=== PATIENT | male | born 1950 | race Two or more races ===

== ENCOUNTER 2024-02-11 22:55 | Inpatient (IN) | payer OTHER ==
[~2024-02-11] VITALS: Ht 177.8 cm; Wt 86.0 kg
--- NOTE | 2024-02-12 00:02 | ED.PDOC ---
General HPI Comments 73-year-old male who came to ER for urinary issues. Patient does have history of benign prostatic hypertrophy. He has a Shelley catheter inserted. For the past few hours he has been having gross hematuria, and leaking Shelley Shelley catheter, with inability to fully void at times. Noted lower abdominal/suprapubic pressure. Denies any nausea or vomiting. Chief Complaint: Urinary Time Seen by MD: 00:02 Reviewed notes: Nurses Notes Information Source: Patient Mode of Arrival: EMS Severity: Moderate Inability to void: Complete Timing: Hours Duration: Since onset Has not urinated for: Hours Prehospital treatment: None Onset: Spontaneous Symptoms: Hematuria, Inability to void History of: UTI, BPH Location: Suprapubic associated signs and symptoms: Hematuria, Inability to Void Past Medical History PAST MEDICAL HISTORY: HTN Past Medical History (Other): Benign prostatic hypertrophy Surgical History: Denies all surgeries Family History Family History: Reviewed,noncontributory to illness Social History Smoker: Non-Smoker Alcohol: Denies ETOH Use Drugs: Denies Drug Use Lives In: Home Constitutional: denies: chills, diaphoresis, fatigue, fever, malaise, sweats, weakness, others EENTM: denies: blurred vision, double vision, ear bleeding, ear discharge, ear drainage, ear pain, ear ringing, eye pain, eye redness, hearing loss, mouth pain, mouth swelling, nasal discharge, nose bleeding, nose congestion, nose pain, photophobia, tearing, throat pain, throat swelling, voice changes, others Respiratory: denies: cough, hemoptysis, orthopnea, SOB at rest, shortness of breath, SOB with excertion, stridor, wheezing, others Cardiovascular: denies: chest pain, dizzy spells, diaphoresis, Dyspnea on exertion, edema, irregular heart beat, left arm pain, lightheadedness, palpitations, PND, syncope, others Gastrointestinal: reports: abdominal pain; denies: abdomen distended, blood streaked bowels, constipated, diarrhea, dysphagia, difficulty swallowing, hematemesis, melena, nausea, poor appetite, poor fluid intake, rectal bleeding, rectal pain, vomiting, others Genitourinary: reports: hematuria, others (Inability to void); denies: burning, dysuria, flank pain, frequency, incontinence, penile discharge, penile sore, pain, testicle pain, testicle swelling, urgency Neurological: denies: dizziness, fainting, headache, left sided numbness, left sided weakness, numbness, paresthesia, pre-existing deficit, right sided numbness, right sided weakness, seizure, speech problems, tingling, tremors, weakness, others Musculoskeletal: denies: back pain, gout, joint pain, joint swelling, muscle pain, muscle stiffness, neck pain, others Integumetry: denies: bruises, change in color, change in hair/nails, dryness, laceration, lesions, lumps, rash, wounds, others Allergic/Immunocompromised: denies: Difficulty Healing, Frequent Infections, Hives, Itching, others Hematologic/Lymphatic: denies: anemia, blood clots, easy bleeding, easy bruising, swollen glands, others Endocrine: denies: excessive hunger, excessive sweating, excessive thirst, excessive urination, flushing, intolerance to cold, intolerance to heat, unexplained weight gain, unexplained weight loss, others Psychiatric: denies: anxiety, bipolar disorder, depression, hopeless, panic disorder, schizophrenia, sleepless, suicidal, others Physical Exam General Appearance: No Apparent Distress, Normal HEENT: Normal ENT Inspection, Pharynx Normal, TMs Normal Neck: Full Range of Motion, Non-Tender, Normal, Normal Inspection Respiratory: Chest Non-Tender, Lungs Clear, No Accessory Muscle Use, No Respiratory Distress, Normal Breath Sounds Cardiovascular: No Edema, No JVD, No Murmur, No Gallop, Normal Peripheral Pulses, Regular Rate/Rhythm Breast Exam: Deferred Gastrointestinal: No Organomegaly, Non Tender, No Pulsatile Mass, Normal Bowel Sounds, Soft Genitalia: Deferred Pelvic: Deferred Rectal: Deferred Extremities: No calf tenderness, Normal capillary refill, Normal inspection, Normal range of motion, Non-tender, No pedal edema Musculoskeletal : Apperance: Normal Neurologic: Alert, orthophotography technician II-XII nml as Tested, No Motor Deficits, Normal Affect, Normal Mood, No Sensory Deficits Cerebellar Function: Normal Reflexes: Normal Skin: Dry, Normal Color, Warm Lymphatic: No Adenopathy Was a procedure done? Was a procedure done?: No Differential Diagnosis Kidney stone (Female): N/A Kidney stone (Male): Renal failure, Strain, Urinary obstruction, Urolithiasis, Renal infarction, Urinary tract infection Penile/Scrotal: Urolithiasis, Urinary Retention Urinary Problem (Male): Renal Failure, Urethritis, Urinary Retention, Urolithiasis, UTI X-Ray, Labs, Meds, VS Vital Signs Date Time Temp Pulse Resp B/P (MAP) Pulse Ox O2 Delivery O2 Flow Rate FiO2 02/11/24 22:55 97.8 91 16 167/105 (125) 98 Time of 1ST Reevaluation: 23:59 Reevaluation 1ST: Unchanged Patient Education/Counseling: Diagnosis, Treatment Family Education/Counseling: No Family Present Departure 1 Departure Time of Disposition: 01:21 (Patient has acute urinary retention with hematuria and clots. Patient needs continuous bladder irrigation. We will start here getting patient with a bladder admit for urology consultation further workup.) Impression: Primary Impression: Acute urinary retention Additional Impressions: Hematuria Qualified Codes: R31.0 - Gross hematuria Bladder irritation Disposition: ADMITTED INPATIENT Admit to: Med Surg Condition: Serious Critical Care Note Critical Care Time?: No Stability Stability form required: No Heart Score Heart Score: Heart Score Response (Comments) Value History N/A 0 EKG N/A 0 Age N/A 0 Risk Factors N/A 0 Troponin N/A 0 Total 0 I personally scribed for KRISSY HERRERA MD ([email or web address]) on 02/12/24 at 00:02. Electronically submitted by John Berger ([facility]). KRISSY HERRERA MD Feb 12, 2024 00:02
[2024-02-12 01:34] LABS: Basophils # (auto) 0 10 ^3/uL (0-0.2); Basophils % (auto) 0.3 % (0.0-2.0); Eosinophils # (auto) 0 10 ^3/uL (0-0.8); Eosinophils % (auto) 0.3 % (0.0-7.0); Hematocrit 41.5 % (41.0-53.0); Hemoglobin 14.5 g/dL (13.5-17.5); Lymphocytes # (auto) 1.1 10 ^3/uL (0.4-5.4); Lymphocytes % (auto) 11.8 % (10.0-50.0); Mean Corpuscular Hemoglobin 31.1 pg (28.0-32.0); Mean Corpuscular Hgb Conc. 34.9 g/dL (32.0-36.0); Mean Corpuscular Volume 89.1 fL (80.0-100.0); Monocytes # (auto) 0.6 10 ^3/uL (0-1.3); Monocytes % (auto) 6.8 % (0.0-12.0); Neutrophils # (auto) 7.3 10 ^3/uL (1.6-8.6); Neutrophils % (auto) 80.8 % (37.0-80.0); Platelet Count (auto) 208 10^3/uL (140-450); Red Blood Cells 4.66 10^6/uL (4.5-5.90); Red Cell Distribution Width 14.2 % (11.8-14.3)
[2024-02-12 01:43] LABS: Chloride 104 mmol/L (98-107); Sodium 142 mmol/L (136-145)
[2024-02-12 01:44] LABS: Anion Gap 5 (5-15); Calcium 9.9 mg/dL (8.7-10.4)
[2024-02-12 01:47] LABS: Carbon Dioxide 33 mmol/L (20-31)
[2024-02-12 01:49] LABS: BUN/Creatinine Ratio 10.2 (10.0-20.0); Blood Urea Nitrogen 11 mg/dL (9-23)
[2024-02-12 02:13] LABS: Glucose 118 mg/dL (74-106)
[2024-02-12 02:24] LABS: INR 1.03 (0.9-1.15); Prothrombin Time 10.9 sec (9.3-11.8)
[2024-02-12] MEDS ORDERED: ACETAMINOPHEN 325 MG TAB PO PRN (02:45)
[2024-02-12] MEDS ORDERED: NITROGLYCERIN 0.4 MG SL TAB SL PRN (02:45)
[2024-02-12] MEDS ORDERED: MORPHINE SULFATE INJ 2 MG/ml SYRG IV PRN ×2 (02:45)
[2024-02-12] MEDS ORDERED: ONDANSETRON HCL 4 MG/2 ML VIAL IV PRN (02:45)
[2024-02-12 03:45] VITALS: PULSE 67; RESP 10; O2SAT 96
--- NOTE | 2024-02-12 04:20 | DVH ---
CHEST RADIOGRAPH Indication: baseline chest imaging Technique: Single frontal view of the chest was obtained Comparison: None IMPRESSION: The cardiomediastinal silhouette appears unremarkable. No sizable effusion, focal airspace opacity, o r pneumothorax.
--- NOTE | 2024-02-12 04:22 | DVHHPRES ---
History of Present Illness Resident Creating Document: SOCO BROCK RESIDENT Reason for Visit: URINARY BLEEDING History of Present Illness 73-year-old male patient with past medical history of benign prostatic hyperplasia with prior transurethral resection of the prostate, hyperlipidemia, hypertension managed with losartan and nifedipine, hepatic steatosis and intermittent constipation. He presents to the emergency department with a gross hematuria which he reports has been recurrent issue for the past 10 years. The bleeding occurs without apparent triggers such as physical activity or anticoagulation therapy. He denies any family history of coagulation disorders or similar conditions. The current episode of hematuria began on Wednesday (5 days ago), accompanied by lower abdominal bloating and eventually urinary retention close by clot formation obstructing the urethra (per patient). He reports that in previous episodes, drinking large amount of water help flush clots and restarted urinary flow. However in this episode the clot cause severe suprapubic pain and urinary retention, which necessitated placement of a Shelley catheter in the emergency department. Following catheter placement his pain resolved. The patient has a history of taking aspirin intermittently over the past decade for perceived benefit in reducing colon cancer and cardiovascular risk initially 325 mg, then reduced to 100 mg. He denies any abdominal pain, nausea, vomiting, dysuria, fever or recent weight loss. He also denies smoking alcohol use or drug use. The patient has no family history of bleeding disorder or malignancy. 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 Past Medical History benign prostatic hyperplasia with prior transurethral resection of the prostate, hyperlipidemia, hypertension Past Surgical History: TURP Family History: DM, Hypertension Smoke: No ALCOHOL: none Drugs: None Lives: with Family Domestic Violence: Neg Review of Systems Review of Systems Constitutional: Reports feeling well overall except for urinary bleeding and associated symptoms. Eyes: No: Pain, Vision change, Conjunctivae inflammation, Eyelid inflammation, Other, Redness ENT: No: Ear pain, Ear discharge, Nose pain, Nose discharge, Nose congestion, Mouth pain, Mouth swelling, Throat pain, Throat swelling, Other Respiratory: No Wheezing, Hemoptysis, Pleuritic Pain, Sputum, Wheezing, Other Cardiovascular: No: Chest Pain, Palpitations, Orthopnea, Paroxysmal Noc. Dyspnea, Edema, Lt Headedness, Other Gastrointestinal: No: Nausea, Vomiting, Abdominal Pain, Diarrhea, Constipation, Melena, Hematochezia, Other Genitourinary: Reports gross hematuria since Wednesday with possible clot retention since yesterday. Denies dysuria or foul-smelling urine. Has a history of intermittent hematuria for 10 years, usually relieved by increased water intake, currently has a Shelley catheter with no pain following placement. Denies incontinence Musculoskeletal: No: other, neck pain, shoulder pain, arm pain, back pain, hand pain, leg pain, foot pain Neurological:; No: Weakness, Numbness, Incoordination, Change in speech, Confusion, Seizures Allergies: Coded Allergies: No Known Drug Allergy (Verified Allergy, Unknown, 02/12/24) Medications Current Medications Medications Dose Ordered Sig/Eduin Route Start Time Stop Time Status Last Admin Dose Admin Ondansetron HCl 4 mg Q4HP PRN IV 02/12/24 02:45 Acetaminophen 650 mg Q6HP PRN PO 02/12/24 02:45 Morphine Sulfate 2 mg Q4HPRN PRN IV 02/12/24 02:45 Nitroglycerin 0.4 mg Q5MINP PRN SL 02/12/24 02:45 Morphine Sulfate 2 mg Q30M PRN IV 02/12/24 02:45 Exam Vital Signs Vital Signs Date Time Temp Pulse Resp B/P (MAP) Pulse Ox O2 Delivery O2 Flow Rate FiO2 02/12/24 04:05 98.6 67 10 176/105 (128) 96 98.6 02/12/24 03:45 Room Air* 0 21 Exam Examination General Appearance: Alert, Oriented X3, Cooperative, No acute distress HEENT: EOMI Respiratory: Clear to auscultation, Normal air movement Cardiovascular: Regular rate, Normal S1, Normal S2 Abdominal: Soft, nontender nondistended. Mild bloating noted in the hypogastric region, no rebound tenderness or guarding. Bowel sounds present and normal no palpable masses Genitourinary: Shelley catheter in place, draining bright red urine. No suprapubic tenderness no external lesions or discharge noted Extremities: No cyanosis, No edema, Normal pulses, No tenderness/swelling Skin: Multiple petechia in the torso Neuro: Normal gait, Normal speech, Strength at 5/5 X4 ext, Normal tone, Sensation intact, Cranial nerves 3-12 NL, Reflexes 2+ Psych/Mental Status: Mental status NL, Mood NL Labs/Xrays Labs Test 02/12/24 01:18 Range/Units White Blood Count 9.0 4.4-10.8 10^3/uL Red Blood Count 4.66 4.5-5.90 10^6/uL Hemoglobin 14.5 13.5-17.5 g/dL Hematocrit 41.5 41.0-53.0 % Mean Corpuscular Volume 89.1 80.0-100.0 fL Mean Corpuscular Hemoglobin 31.1 28.0-32.0 pg Mean Corpuscular Hemoglobin Concent 34.9 32.0-36.0 g/dL Red Cell Distribution Width 14.2 11.8-14.3 % Platelet Count 208 140-450 10^3/uL Mean Platelet Volume 9.6 6.9-10.8 fL Neutrophils (%) (Auto) 80.8 H 37.0-80.0 % Lymphocytes (%) (Auto) 11.8 10.0-50.0 % Monocytes (%) (Auto) 6.8 0.0-12.0 % Eosinophils (%) (Auto) 0.3 0.0-7.0 % Basophils (%) (Auto) 0.3 0.0-2.0 % Neutrophils # (Auto) 7.3 1.6-8.6 10 ^3/uL Lymphocytes # (Auto) 1.1 0.4-5.4 10 ^3/uL Monocytes # (Auto) 0.6 0-1.3 10 ^3/uL Eosinophils # (Auto) 0 0-0.8 10 ^3/uL Basophils # (Auto) 0 0-0.2 10 ^3/uL Nucleated Red Blood Cells 0.0 % Prothrombin Time 10.9 9.3-11.8 sec Prothrombin Time INR 1.03 0.9-1.15 Sodium Level 142 136-145 mmol/L Potassium Level 4.0 3.5-5.1 mmol/L Chloride Level 104 98-107 mmol/L Carbon Dioxide Level 33 H 20-31 mmol/L Anion Gap 5 5-15 Blood Urea Nitrogen 11 9-23 mg/dL Creatinine 1.08 0.700-1.30 mg/dL Glomerular Filtration Rate Calc 73 >90 mL/min BUN/Creatinine Ratio 10.2 10.0-20.0 Serum Glucose 118 H 74-106 mg/dL Calcium Level 9.9 8.7-10.4 mg/dL Assessment/Plan Assessment/Plan #Recurrent gross hematuria acute urinary retention likely due to clot formation ? Rule out benign prostatic hyperplasia ? Bladder pathology ? Urolithiasis ? Medication induced(aspirin) -history of TURP increases risk of bleeding from prostatic tissue. -CT scan of the abdomen -bladder scan -urinalysis -Shelley catheter -bladder irrigation -monitor I&O -urine culture -urology consult -coagulation panel -PSA -tamsulosin -discontinue aspirin temporarily ?questionable emphysematous cystitis -empiric antibiotics -meropenem iv -vanco iv -urine culture -blood culture #Uncontrolled hypertension Nifedipine XL 60 mg #Hyperlipidemia -ezetimibe #Hepatic steatosis -liver ultrasound -monitor LFTs Case discussed with Dr. Rodrigues Goals of care discussed with the patient for 30 minutes Code status, full code Plan discussed with: Patient My Orders Orders - SOCO BROCK RESIDENT Procedure Category Date Status Time Admit ADMIT 02/12/24 Transmitted 02:31 Allergies JACKIE 02/12/24 In Process 02:31 Code Status CODE 02/12/24 Transmitted 02:31 Renal DIET 02/12/24 Transmitted Standard(2gna,3gk,Lopho) Breakfast Ondansetron Hcl PHA 02/12/24 In Process (Zofran) 02:45 Complete Blood Count LAB 02/13/24 Verified 04:00 Comprehensive LAB 02/13/24 Verified Metabolic Panel 04:00 Acetaminophen Tablet PHA 02/12/24 In Process (Tylenol Tablet) 02:45 Morphine Sulfate PHA 02/12/24 In Process Injection 02:45 Nitroglycerin PHA 02/12/24 In Process Sublingual (Ntrostat 02:45 Morphine Sulfate PHA 02/12/24 In Process Injection 02:45 Oxygen By Nasal RT 02/12/24 Transmitted Cannula 02:31 Stat Ekg For Chest JACKIE 02/12/24 In Process Pain 02:31 Notify Md Of Changes JACKIE 02/12/24 In Process From Base 02:31 Consultant Technology For JACKIE 02/12/24 In Process 24 Hours 02:31 Emergency Dysrhythmia JACKIE 02/12/24 In Process Protocol 02:31 Rhythm Strips Once JACKIE 02/12/24 In Process Every Shift 02:31 Urinalysis LAB 02/12/24 Logged 02:33 Bladder Scan ORDERS 02/12/24 Transmitted 02:33 Chest Xray 1 View XY 02/12/24 Taken 02:33 Date of Service: Feb 12, 2024 Billing Provider: DOUGLAS RODRIGUES MD Common Visit Codes: 24399-KBPTGEQ INP/OBS CARE (HIGH) Secondary Visit Codes: 07195-MUIOXEFA CARE PLAN 30 MINUTES SOCO BROCK RESIDENT Feb 12, 2024 04:22 DOUGLAS RODRIGUES MD Feb 14, 2024 12:00
[2024-02-12] MEDS: TAMSULOSIN HYDROCHLORIDE 0.4 MG CAP PO ONE (04:34)
[2024-02-12] MEDS ORDERED: LOSA-534 PO (04:53)
[2024-02-12] MEDS ORDERED: PANC3600 PO (04:53)
[2024-02-12] MEDS ORDERED: ATOR40TA52 PO (04:53)
[2024-02-12] MEDS ORDERED: NIFE90TA75 (04:53)
[2024-02-12] MEDS ORDERED: VANCOMYCIN PER PHARMACY 0 MG IV SCH (05:00)
[2024-02-12] MEDS: NIFEdipine ER 30 MG TAB PO SCH (05:23)
[2024-02-12] MEDS: LOSARTAN POTASSIUM 50 MG TAB PO SCH (05:23)
--- NOTE | 2024-02-12 05:38 | DVH ---
Exam: CT CT AB PEL WO CON-NO ORAL OR IV History: Acute abdominal pain Comparison Study: None available at time of dictation. TECHNIQUE: Noncontrast CT imaging of the abdomen and pelvis was obtained. The data set was subsequent ly reconstructed into axial images. Images were reviewed on a work station using a combination of axi al and multiplanar using a variety of window levels and settings. All CT scans at this medical facility are performed using dose modulation techniques as appropriate t o a performed exam including the following: Automated exposure control was utilized; adjustment of th e MA and/or KV according to patient size; and use of iterative reconstruction technique. Radiation Dose Information: CT Dose: Dose-length product is 718.8 mGy*cm FINDINGS: There are severe coronary artery calcifications. No Limited noncontrast evaluation of the liver, gallbladder, spleen, pancreas and adrenal glands appear unremarkable. There is a 3.4 cm iso to hyperdense mass of the right lower pole. Additional 2.5 cm rig ht renal cysts. Multiple bilateral 1-2 mm nonobstructing renal calculi. No hydronephrosis. There is no evidence of bowel obstruction or focal bowel wall thickening. The appendix appears mario alberto l. The prostate gland is enlarged estimated 6.9 x 6.3 x 6.1 cm. Shelley catheter is present within the urinary bladder with hyperdense fluid within the bladder. No free pelvic fluid. No suspicious osseous lesion with severe degenerative changes of the lumbar spine. IMPRESSION: 1. 3.4 cm mass of the right kidney concerning for neoplastic process. CT or MRI with contrast is mira mmended for further characterization. 2. Hyperdense fluid within the urinary bladder in presence of the Shelley catheter likely represents bl ood products. Correlation with urinalysis is recommended. 3. Enlarged prostate gland. 4. Bilateral nonobstructing renal calculi.
[2024-02-12] MEDS: MEROPENEM 1GM IVPB 50 ML IV ONE (06:50)
[2024-02-12] MEDS: VANCOMYCIN 1GM/250mL NS or D5W KIT IV SCH (07:30)
[2024-02-12 08:10] VITALS: O2SAT 95
[2024-02-12 08:56] LABS: Alanine Aminotransferase 27 U/L (7-40); Albumin 4.2 g/dL (3.2-4.8); Alkaline Phosphatase 84 U/L (46-116); Anion Gap 6 (5-15); BUN/Creatinine Ratio 10.3 (10.0-20.0); Blood Urea Nitrogen 9 mg/dL (9-23); Calcium 9.5 mg/dL (8.7-10.4); Carbon Dioxide 31 mmol/L (20-31); Chloride 105 mmol/L (98-107); Sodium 142 mmol/L (136-145); Total Protein 6.8 g/dL (5.7-8.2)
[2024-02-12 09:00] LABS: Aspartate Aminotransferase 10 U/L (13-40); Bilirubin, Total 1.4 mg/dL (0.2-1.0); Glucose 108 mg/dL (74-106); Potassium 3.4 mmol/L (3.5-5.1)
[2024-02-12 09:03] LABS: Free T3 3.87 pg/mL (2.3-4.2); Free T4 (Free Thyroxine) 1.26 ng/dL (0.89-1.76)
[2024-02-12 10:37] LABS: Basophils # (auto) 0 10 ^3/uL (0-0.2); Basophils % (auto) 0.2 % (0.0-2.0); Eosinophils # (auto) 0 10 ^3/uL (0-0.8); Eosinophils % (auto) 0.2 % (0.0-7.0); Hematocrit 39.2 % (41.0-53.0); Hemoglobin 13.7 g/dL (13.5-17.5); Lymphocytes # (auto) 0.8 10 ^3/uL (0.4-5.4); Mean Corpuscular Hemoglobin 31.5 pg (28.0-32.0); Mean Corpuscular Volume 90.1 fL (80.0-100.0); Monocytes # (auto) 0.6 10 ^3/uL (0-1.3); Monocytes % (auto) 5.5 % (0.0-12.0); Neutrophils # (auto) 8.8 10 ^3/uL (1.6-8.6); Neutrophils % (auto) 86.1 % (37.0-80.0); Platelet Count (auto) 180 10^3/uL (140-450); Red Blood Cells 4.35 10^6/uL (4.5-5.90); Red Cell Distribution Width 13.7 % (11.8-14.3); White Blood Cell 10.2 10^3/uL (4.4-10.8)
[2024-02-12] MEDS: FINASTERIDE 5 MG TAB PO SCH (11:14)
[2024-02-12] MEDS: POTASSIUM CHL 20 Meq TABLET PO ONE ×2 (11:15→15:19)
[2024-02-12] MEDS: traMADol HCL 50 MG TAB PO PRN (11:32)
[2024-02-12 11:58] VITALS: BP_SYST 147; BP_DIAS 84; BP_DIAS 85; PULSE 84; PULSE 89; RESP 18; TEMP 97.4; O2SAT 94; O2SAT 97
--- NOTE | 2024-02-12 12:06 | DVH ---
INDICATION: gross hematuria TECHNIQUE: Multiple real-time sonographic images of the kidneys and bladder were obtained. COMPARISON: None FINDINGS: The right kidney measures 10.2 cm in length. The right renal echogenicity, contour and cortical thick ness are within normal limits. No hydronephrosis or large masses/calculi are seen. Multiple simple cy sts are seen, the largest measuring up to 2.7 cm. The left kidney measures 11.2 cm in length. The left renal echogenicity, contour, and cortical thickn ess are within normal limits. No hydronephrosis or large masses/calculi are seen. No large intraluminal masses are seen in the bladder. Urinary bladder is collapsed around a Shelley catheter. Echogenic debris in the urinary bladder may ref lect blood products. IMPRESSION: 1. No evidence of hydronephrosis. 2. Echogenic debris in the urinary bladder may reflect blood products.
[2024-02-12] MEDS: VANCOMYCIN 1GM/250ML KIT 250 ML IV ONE (12:30)
--- NOTE | 2024-02-12 13:49 | DVHPNRES ---
Progress Note Date Seen: Feb 12, 2024 Resident Creating Document: JEREMIAH SAEZMENDY RESIDENT Medical Necessity Reason Pt with a Central, PICC or Fol: Yes The following are medically ne: Shelley Catheter Subjective Review of Systems 73-year-old male with a past medical history as described below presented to the ED with a chief complaint of urinary retention and suprapubic pain. Patient reported that 4 days prior to admission he had hematuria for about 2 hours but it was cleared afterwards and 1 day prior to admission he was having hematuria again with passage of clots followed by not able to pass urine and that "the clots got stuck in urethra" as reported by the patient, he had associated suprapubic pain when he was not able to pass the urine. Patient denied fever, chills, flank pain, back pain, nausea, vomiting. Patient reports that he has had multiple episodes of hematuria since the last 10 years. He says that hematuria usually occurs every 2-3 months clears up in a few days. Usually he says that he drinks large amount of water to help flush the clots and restart the urine he sometimes he has to go to the hospital. Patient denied recent weight loss, malaise. Patient reports occasional constipation.The patient has a history of taking aspirin intermittently over the past decade for perceived benefit in reducing colon cancer and cardiovascular risk initially 325 mg, then reduced to 100 mg. Past medical history: Hypertension, hyperlipidemia, fatty liver, BPH Past surgical history: TURP Social history: Patient denies smoking, alcohol, drug use Home medications: Atorvastatin 40 mg, losartan 50 mg, nifedipine 90 mg, pancrelipase 94955 units p.o. Review of systems Patient is seen and examined at bedside. Alert and oriented x4. Patient got a Shelley's catheter placed in the emergency department which relieved his pain. He has been getting continuous bladder irrigation which has been draining some clots and blood-tinged fluid. At the time of examination patient denies suprapubic pain and is sitting comfortably in bed. Objective vital signs Vital Sign Date Time Temp Pulse Resp B/P (MAP) Pulse Ox O2 Delivery O2 Flow Rate FiO2 02/12/24 11:58 Room Air* 0 21 02/12/24 11:58 97.4 84 18 147/85 (105) 94 97.4 Total Intake and Output 02/11/24 02/11/24 02/12/24 15:00 23:00 07:00 Intake Total 98790 ml Output Total 02819 ml Balance -600 ml medications Current Medications Medications Dose Ordered Sig/Eduin Route Start Time Stop Time Status Last Admin Dose Admin Ondansetron HCl 4 mg Q4HP PRN IV 02/12/24 02:45 Acetaminophen 650 mg Q6HP PRN PO 02/12/24 02:45 Nitroglycerin 0.4 mg Q5MINP PRN SL 02/12/24 02:45 Losartan Potassium 50 mg DAILY PO 02/12/24 05:00 02/12/24 11:13 50 MG Tamsulosin HCl 0.4 mg QPM PO 02/12/24 18:00 Nifedipine 90 mg DAILY PO 02/12/24 05:00 02/12/24 05:23 90 MG Tramadol HCl 50 mg Q4HP PRN PO 02/12/24 05:00 02/12/24 11:32 50 MG Meropenem 50 ml @ 17 mls/hr Q8HR IV 02/12/24 14:00 Vancomycin HCl 0 ml @ 0 mls/hr UD IV 02/12/24 05:00 Finasteride 5 mg DAILY PO 02/12/24 10:00 02/12/24 11:14 5 MG Examination Physical Examination Gen - no pallor, no icterus, no cyanosis, no clubbing, no LAD, no edema . Skin - Patients skin is warm and dry. HEENT - normocephalic, atraumatic, moist mucous membranes. Neck - full ROM, no LAD, no JVD Pulmonary - B/L vesicular breath sounds. no crackles , no wheezing, no stridor. cardiovascular - normal S1,S2 heard. no murmurs heard. peripheral pulses normal radial 2+, pedal 2+. capillary refill normal <2 secs. GI - soft abdomen without tenderness to palpation . no hepatosplenomegaly. Bowel sounds normoactive Neurological - Patient is A/O X 3. Bilateral upper extremity strength 5/5, bilateral lower extremity strength 5/5, no facial droop, normal speech, no tremor, no sensory deficiets. laboratory and microbiology Laboratory Tests 02/12/24 08:14 Test 02/12/24 08:14 Range/Units Serum Glucose 108 H 74-106 mg/dL Labs and/or images reviewed: Labs reviewed by me, Image(s) reviewed by me Problem List/Assessment/Plan Problem List/Assessment/Plan Assessment and plan # Acute urinary obstruction likely due to blood clots # Gross hematuria # Enlarged prostate likely BPH # Right renal mass - CT abdomen pelvis without oral or IV contrast showed 1. 3.4 cm mass of the right kidney concerning for neoplastic process. CT or MRI with contrast is recommended for further characterization. 2. Hyperdense fluid within the urinary bladder in presence of the Shelley catheter likely represents blood products. Correlation with urinalysis is recommended. 3. Enlarged prostate gland 4. Bilateral nonobstructing renal calculi. - Renal ultrasound showed 1. No evidence of hydronephrosis. 2. Echogenic debris in the urinary bladder may reflect blood products. - patient on continuous bladder irrigation. - urology consulted who recommended continuing bladder irrigation - PSA pending - PT, INR, PTT normal - on tamsulosin and finasteride - urinalysis pending # ?neoplastic renal mass - CT findings as above which recommended CT or MRI with contrast for further characterization - CT abdomen pelvis with IV contrast pending # ?emphysematous Cystitis - CT abdomen pelvis does not report emphysematous cystitis but in the imaging there are some hypodense opacities in the bladder wall - Further imaging with CT with IV contrast pending - given Vancomycin and meropenem, stopped - IV ceftriaxone started # Uncontrolled Hypertension - on nifedipine 90 mg daily - losartan 50 mg daily # h/o hyperlipidemia - continued on atorvastatin 40 mg daily # hypokalemia - replenished Goals of care discussed with the patient for 20 minutes. Full code Plan discussed with Dr. South Plan discussed with: Patient (PENDLETON ( arlene )), Other (Nurse) My Orders My Orders Orders - RADHA SAEZ RESIDENT Procedure Category Date Status Time Kidney US 02/12/24 Resulted 10:22 Addendum Addendum Addendum I was physically present for the estevez portions of the service provided to patient by THE RESIDENT. I have reviewed the documentation, discussed the case with resident and agree with the resident's documentation except as noted. Also the patient's clinical case was discussed with the patient's nurse. This medical document was created using an electronic medical record system with computerized dictation system. Although this document has been carefully reviewed, there might still be some phonetic and typographical errors. These areas are purely typographical due to imperfections of the software programs, and do not reflect any compromise in the patient's medical care. Late signature. Date of Service: Feb 12, 2024 Billing Provider: BETZY SOUTH MD Common Visit Codes: 23816-[id number] INP/OBS CARE(HIGH) Secondary Visit Codes: 62783-[id number] CARE PLAN 30 MINUTES (20 minutes) RADHA SAEZ RESIDENT Feb 12, 2024 13:49 BETZY SOUTH MD Feb 14, 2024 10:18
[2024-02-12] MEDS: MEROPENEM 1GM IVPB 50 ML IV SCH (15:19)
[2024-02-12 17:00] VITALS: BP 132/88; PULSE 84; RESP 18; TEMP 97.6; O2SAT 97
[2024-02-12] MEDS: TAMSULOSIN HYDROCHLORIDE 0.4 MG CAP PO SCH (17:50)
[2024-02-12 20:25] LABS: Urine Bacteria FEW /hpf (None Seen); Urine Blood 3+ /uL (Negative); Urine Clarity Clear (Clear); Urine Color Colorless (Yellow); Urine Protein, UAD Negative (Negative); Urine Specific Gravity 1.005 (1.001-1.035); Urine Urobilinogen Normal (Negative); Urine WBC 19 /hpf (0 - 3)
[2024-02-12 21:00] VITALS: BP 139/84; PULSE 78; RESP 16; TEMP 98.1; O2SAT 98
[2024-02-12] MEDS: ATORVASTATIN 20 MG TAB PO SCH (21:51)
[2024-02-13 01:00] VITALS: BP 128/83; PULSE 82; RESP 20; TEMP 99.4; O2SAT 95
[2024-02-13 04:46] LABS: Amphetamine Screen, Urine Neg (NEGATIVE)
[2024-02-13 04:47] LABS: Barbiturate Scree,Urine Neg (NEGATIVE); Benzodiazephine Screen, Urine Neg (NEGATIVE); Cannabinoid Screen, Urine Neg (NEGATIVE); Cocaine Screen, Urine Neg (NEGATIVE); Opiate Scree,Urine Neg (NEGATIVE); Phencyclidine Screen, Urine Neg (NEGATIVE)
[2024-02-13 05:00] VITALS: BP 126/84; PULSE 75; RESP 18; TEMP 98.6; O2SAT 95
[2024-02-13 06:15] LABS: Basophils # (auto) 0 10 ^3/uL (0-0.2); Basophils % (auto) 0.3 % (0.0-2.0); Eosinophils # (auto) 0.1 10 ^3/uL (0-0.8); Eosinophils % (auto) 1.3 % (0.0-7.0); Hematocrit 37.1 % (41.0-53.0); Lymphocytes # (auto) 1.4 10 ^3/uL (0.4-5.4); Lymphocytes % (auto) 17.4 % (10.0-50.0); Mean Corpuscular Hemoglobin 31.4 pg (28.0-32.0); Mean Corpuscular Volume 89.8 fL (80.0-100.0); Monocytes # (auto) 0.5 10 ^3/uL (0-1.3); Monocytes % (auto) 6.2 % (0.0-12.0); Neutrophils # (auto) 5.9 10 ^3/uL (1.6-8.6); Neutrophils % (auto) 74.8 % (37.0-80.0); Platelet Count (auto) 182 10^3/uL (140-450); Red Blood Cells 4.14 10^6/uL (4.5-5.90); Red Cell Distribution Width 13.8 % (11.8-14.3); White Blood Cell 7.9 10^3/uL (4.4-10.8)
[2024-02-13 06:17] LABS: Alanine Aminotransferase 19 U/L (7-40); Albumin 3.8 g/dL (3.2-4.8); Alkaline Phosphatase 76 U/L (46-116); Anion Gap 7 (5-15); BUN/Creatinine Ratio 10.3 (10.0-20.0); Blood Urea Nitrogen 10 mg/dL (9-23); Calcium 9.2 mg/dL (8.7-10.4); Carbon Dioxide 28 mmol/L (20-31); Chloride 107 mmol/L (98-107); Glucose 103 mg/dL (74-106); Sodium 142 mmol/L (136-145); Total Protein 6.2 g/dL (5.7-8.2)
[2024-02-13 06:25] LABS: Aspartate Aminotransferase 8 U/L (13-40); Potassium 3.4 mmol/L (3.5-5.1)
[2024-02-13 09:00] VITALS: BP 132/83; PULSE 75; RESP 20; TEMP 98.2; O2SAT 96
[2024-02-13] MEDS: POTASSIUM CHL 20 Meq TABLET PO ONE (09:33)
[2024-02-13] MEDS: cefTRIAXone 1GM/50ML D5W 50 ML IV SCH (10:09)
--- NOTE | 2024-02-13 11:14 | DVH ---
Exam: CT CT AB PEL WITH IV CON ONLY History: renal mass neoplastic, emphysematous cystitis COMPARISON: CT CT AB PEL WO CON-NO ORAL OR IV on DOS: 02/12/24 ; renal ultrasound 02/12/2024 Technique: Multidetector spiral CT of the abdomen and pelvis was performed from lung bases to pubic s ymphysis. Intravenous contrast was administered during this examination. Portal venous imaging was obtained. Axial, coronal and sagittal multiplanar reformats were performed by the technologist on a separate workstation. Radiation Dose : 1. Abdomen/Pelvis: CTDIvol 10.3 mGy, DLP 601.28 mGy*cm. CONTRAST: 100 mL omni 300 Findings: Lung Bases: Minimal bibasilar atelectasis. Liver: The liver is normal in size. No focal lesions. Normal hepatic vascular enhancement. Gallbladder and Biliary Tree: Unremarkable Spleen: Unremarkable Pancreas: The pancreas is normal in appearance without focal lesions or abnormal enhancement. Adrenal Glands: Unremarkable Kidneys: Right renal scarring. There is a 2.5 cm fluid attenuating right renal cyst. There is a 3. 4 x 2.8 x 3.0 cm homogeneous and circumscribed lesion in the right inferior renal pole that attenuate s at 45 Hounsfield units. Of note, on noncontrast CT from 02/12/2024 this also attenuated at 45 Houn sfield units. Several punctate nonobstructing renal calculi are seen, better seen on comparison nonco ntrast CT. No hydronephrosis. Bladder: A Shelley catheter is in place within the urinary bladder. There is a small amount of intrave sicular air. There is urinary bladder wall thickening and perivesicular fat stranding. Bowel: The stomach is grossly normal in appearance. Small bowel and colon are normal in caliber and d istribution. Normal appendix is visualized in the right lower quadrant without findings of appendici tis. Ascites: Absent Lymphadenopathy: No mesenteric, retroperitoneal or periportal lymphadenopathy. Abdominal Wall and Mesentery: Unremarkable. Vasculature: The visualized abdominal aorta is normal in size and caliber. Abdominal and pelvic vess els demonstrate normal enhancement. Pelvic Organs: Prostate is enlarged. Musculoskeletal: No aggressive focal bony lesions, acute fractures or dislocation. Moderate to advanc ed degenerative disc changes from L3-S1. IMPRESSION: 1. Urinary bladder wall thickening and adjacent fat stranding. Correlate for cystitis. A Shelley salima ter is in place and there is minimal intraluminal air. This is nonspecific but commonly secondary to instrumentation rather than emphysematous cystitis. 2. Moderate prostatomegaly. 3. Right renal lesion measuring up to 3.4 cm. This does not demonstrate any enhancement when compare d with noncontrast CT from 02/12/2024, and most likely represents a complicated cyst. Recommend foll ow-up imaging in 6 months. Radiation optimization: All CT scans at this facility use at least one of these dose optimization destiny hniques: automated exposure control mA and/or kV adjustment per patient size (includes targeted exam s where dose is matched to clinical indication) or iterative reconstruction.
[2024-02-13 13:00] VITALS: BP 147/68; PULSE 71; RESP 20; TEMP 98.1; O2SAT 96
--- NOTE | 2024-02-13 13:10 | DVHPNRES ---
Progress Note Date Seen: Feb 13, 2024 Resident Creating Document: ZOEY IBARRA RESIDENT Medical Necessity Reason Pt with a Central, PICC or Fol: Yes The following are medically ne: Shelley Catheter Subjective Review of Systems Patient is seen and examined at bedside. Alert and oriented x4. Denies any abdominal pain, nausea, vomiting, he is ambulatory, tolerating diet. No hematuria. Pending urology evaluation At the time of examination patient denies suprapubic pain and is sitting comfortably in bed. Objective vital signs Vital Sign Date Time Temp Pulse Resp B/P (MAP) Pulse Ox O2 Delivery O2 Flow Rate FiO2 02/13/24 09:34 132/83 02/13/24 09:00 98.2 75 20 96 98.2 02/13/24 08:00 Room Air* 0 21 Total Intake and Output 02/12/24 02/12/24 02/13/24 15:00 23:00 07:00 Intake Total 7450 ml 500 ml 900 ml Output Total 52747 ml 61958 ml 4450 ml Balance -7000 ml -16127 ml -3550 ml medications Current Medications Medications Dose Ordered Sig/Eduin Route Start Time Stop Time Status Last Admin Dose Admin Ondansetron HCl 4 mg Q4HP PRN IV 02/12/24 02:45 Acetaminophen 650 mg Q6HP PRN PO 02/12/24 02:45 Nitroglycerin 0.4 mg Q5MINP PRN SL 02/12/24 02:45 Losartan Potassium 50 mg DAILY PO 02/12/24 05:00 02/12/24 11:13 50 MG Tamsulosin HCl 0.4 mg QPM PO 02/12/24 18:00 02/12/24 17:50 0.4 MG Nifedipine 90 mg DAILY PO 02/12/24 05:00 02/13/24 09:34 90 MG Tramadol HCl 50 mg Q4HP PRN PO 02/12/24 05:00 02/12/24 11:32 50 MG Finasteride 5 mg DAILY PO 02/12/24 10:00 02/13/24 09:33 5 MG Ceftriaxone Sodium 50 ml @ 100 mls/hr DAILY@09 IV 02/13/24 09:00 02/13/24 10:09 100 MLS/HR Atorvastatin Calcium 40 mg HS PO 02/12/24 22:00 02/12/24 21:51 40 MG Examination General: Awake, alert, comfortable appearing, in no acute distress. HEENT: Head is normocephalic and atraumatic. Pupils are equal, round, and reactive to light. Extraocular muscles are intact. No nasal discharge. No facial trauma. Intraoral exam shows moist mucous membranes with no tonsillar enlargement or exudate. Neck: Supple with no cervical lymphadenopathy No meningismus. No goiter. Heart: Regular rate without murmur, rub, or gallop. Lungs: Equal breath sounds bilaterally with no wheezing, rales, or rhonchi. There is no chest wall tenderness or instability. Abdomen: No external sign of injury. Bowel sounds are present. Abdomen is soft, nontender. No rebound, no guarding, no rigidity. There are no palpable masses. There is no flank pain on exam. Shelley draining clear urine Extremities: Strong peripheral pulses. There is no clubbing, no cyanosis, and no edema. Skin: No rash. Neurologic: Cranial nerves II-XII intact without motor, sensory, or cerebellar deficit, no asterixis. laboratory and microbiology Laboratory Tests 02/13/24 04:34 Test 02/13/24 04:34 Range/Units Serum Glucose 103 74-106 mg/dL Microbiology Date/Time Source Procedure Growth Status 02/12/24 20:06 Urine - Shelley [place] Urine Culture - Preliminary Resulted 02/12/24 08:14 Blood Blood Culture - Preliminary NO GROWTH AFTER 24 HOURS OF INCUBATION. Resulted Labs and/or images reviewed: Labs reviewed by me, Image(s) reviewed by me Problem List/Assessment/Plan Problem List/Assessment/Plan # Acute urinary obstruction likely due to blood clots # Gross hematuria # Enlarged prostate likely BPH # Right renal mass - CT abdomen pelvis with IV contrast showed 1. Urinary bladder wall thickening and adjacent fat stranding. Correlate for cystitis. A Shelley catheter is in place and there is minimal intraluminal air. This is nonspecific but commonly secondary to instrumentation rather than emphysematous cystitis. 2. Moderate prostatomegaly. 3. Right renal lesion measuring up to 3.4 cm. This does not demonstrate any enhancement when compared with noncontrast CT from 02/12/2024, and most likely represents a complicated cyst. Recommend follow-up imaging in 6 months. - Renal ultrasound showed 1. No evidence of hydronephrosis. 2. Echogenic debris in the urinary bladder may reflect blood products. - patient on continuous bladder irrigation. - urology consulted who recommended continuing bladder irrigation, pending urology follow - PSA pending - on tamsulosin and finasteride Urine culture pending # ?neoplastic renal mass #Complicated renal cyst Pending urology evaluation # ?emphysematous Cystitis - CT abdomen pelvis does not report emphysematous cystitis but in the imaging there are some hypodense opacities in the bladder wall - Further imaging with CT with IV contrast pending - given Vancomycin and meropenem, stopped - IV ceftriaxone started # Uncontrolled Hypertension - on nifedipine 90 mg daily - losartan 50 mg daily # h/o hyperlipidemia - continued on atorvastatin 40 mg daily # hypokalemia - replenished Plan discussed with Dr. South Plan discussed with: Patient, Other (Nurse) My Orders My Orders Orders - ZOEY IBARRA RESIDENT Procedure Category Date Status Time Hemoglobin & LAB 02/14/24 Verified Hematocrit 04:00 Basic Metabolic Panel LAB 02/14/24 Verified 04:00 Addendum Addendum Addendum I was physically present for the estevez portions of the service provided to patient by THE RESIDENT. I have reviewed the documentation, discussed the case with resident and agree with the resident's documentation except as noted. Also the patient's clinical case was discussed with the patient's nurse. This medical document was created using an electronic medical record system with computerized dictation system. Although this document has been carefully reviewed, there might still be some phonetic and typographical errors. These areas are purely typographical due to imperfections of the software programs, and do not reflect any compromise in the patient's medical care. Late signature. Date of Service: Feb 13, 2024 Billing Provider: BETZY SOUTH MD Common Visit Codes: [id number] INP/OBS CARE(HIGH) ZOEY IBARRA RESIDENT Feb 13, 2024 13:10 BETZY SOUTH MD Feb 14, 2024 10:19
[2024-02-13 17:00] VITALS: BP 139/97; PULSE 79; RESP 20; TEMP 97.6; O2SAT 96
[2024-02-13 21:00] VITALS: BP 148/90; PULSE 83; RESP 18; TEMP 97.9; O2SAT 95
[2024-02-14 01:00] VITALS: BP 136/84; PULSE 70; RESP 18; TEMP 98.1; O2SAT 98
[2024-02-14 05:00] VITALS: BP 149/67; PULSE 72; RESP 18; TEMP 97.8; O2SAT 97
[2024-02-14 05:55] LABS: Sodium 143 mmol/L (136-145)
[2024-02-14 05:56] LABS: Anion Gap 8 (5-15); Calcium 9.1 mg/dL (8.7-10.4); Carbon Dioxide 27 mmol/L (20-31)
[2024-02-14 06:01] LABS: BUN/Creatinine Ratio 8.8 (10.0-20.0); Glucose 97 mg/dL (74-106)
[2024-02-14 06:03] LABS: Blood Urea Nitrogen 7 mg/dL (9-23); Chloride 108 mmol/L (98-107); Hematocrit 36.5 % (41.0-53.0); Hemoglobin 12.7 g/dL (13.5-17.5); Potassium 3.2 mmol/L (3.5-5.1)
[2024-02-14] MEDS: IOHEXOL 300 MG/ML 100ML BOTTLE IJ ONE (07:50)
[2024-02-14] MEDS: DOCUSATE SOD 100 MG CAP PO SCH (09:04)
[2024-02-14] MEDS: LACTULOSE 20Gm/30ML SOLN PO ONE (09:10)
[2024-02-14] MEDS: POTASSIUM CHL 20 Meq TABLET PO ONE (09:10)
[2024-02-14 09:18] VITALS: BP 153/72; PULSE 75; RESP 17; TEMP 97.6; O2SAT 98
[2024-02-14 09:24] LABS: Hepatitis B Surface Antigen Negative (Negative)
--- NOTE | 2024-02-14 09:29 | DVHINCON2 ---
Date of service: Feb 14, 2024 Referring Physician Hospitalist Reason for Consultation gross hematuria History of Present Illness History Source: Patient, RN Notes, MD Notes, Old Records Exam Limitations: No limitations HPI 73 yo male with hx of BPH and elevated PSA. He presented to the ER with c/o gross hematuria. He has a pinon in place. He takes asprin a few days per week. He was last seen in our office in November 2021 and was to f/u in 6 weeks but did not. He was scheduled to have a laser enucleation of the prostate in 2015 but was cancelled due to insurance. He had a TURP in [place] 2012. He has been on CBI over the weekend and urine is now clear. Home Meds Reported Medications Losartan Potassium (Losartan Potassium) 50 Mg Tab, 1 TAB PO 02/12/24 Pancrelipase (Lipase-Protease- (CREON) 36,000 Unt Cap, PO 02/12/24 Nifedipine (Nifedipine Er) 90 Mg Tab, 1 02/12/24 Atorvastatin Calcium (ATORVASTATIN CALCIUM) 40 Mg Tab, 1 TAB PO DAILY 02/12/24 Past Medical History Renal/: Benign prostatic enlarg., Hematuria Patient Family History: Alcoholism G8 FATHER Cerebrovascular accident (CVA) G8 MOTHER Hypertension G8 MOTHER Review of Systems Gastrointestinal: Constipation Genitourinary: Hematuria, Retention H&P Exam Vital Signs Vital Signs Date Time Temp Pulse Resp B/P (MAP) Pulse Ox O2 Delivery O2 Flow Rate FiO2 02/14/24 09:18 97.6 75 17 153/72 (99) 98 97.6 02/13/24 20:00 Room Air* 0 21 General Appeara: Well developed, Well nourished, Normal Appearance Neuro/Mental St: Alert, Oriented Eye contact/ Speech: Cooperative, Good eye contact, Normal speech Skin Exam: Normal inspection, Normal color, Warm/dry Labs/Xrays [address] [address] Ph: [phone] DIAGNOSTIC IMAGING Diagnostic Imaging Report : [id number] Signed PATIENT: MIREYA DUBOSE ACCT: [id number] UNIT: [id number] : 1950 LOC: OVERFLOW ROOM / BED: [facility] / A AGE / SEX: 73 / M ADM STATUS: ADM IN SERVICE 0233 ORDERING PHYSICIAN: SOCO BROCK PROCEDURE(s): CXR1 - CHEST XRAY 1 VIEW REASON: baseline chest imaging ORDER NUMBER(s): [id number], ACCESSION NUMBER(s): [id number] CHEST RADIOGRAPH Indication: baseline chest imaging Technique: Single frontal view of the chest was obtained Comparison: None IMPRESSION: The cardiomediastinal silhouette appears unremarkable. No sizable effusion, focal airspace opacity, or pneumothorax. ATED BY: OLEG DALE MD DICTATED DATE/TIME: 02/12/24418 SIGNED BY: OLEG DALE MD SIGNED DATE/TIME: 02/12/24418 CC: [place] [address] Ph: [phone] DIAGNOSTIC IMAGING Diagnostic Imaging Report : [id number] Signed PATIENT: MIREYA DUBOSE ACCT: [id number] UNIT: [id number] : 1950 [facility] AGE / SEX: 73 / M ADM STATUS: ADM IN SERVICE 1 ORDERING PHYSICIAN: SOCO BROCK PROCEDURE(s): ABPL - CT AB PEL WO CON-NO ORAL OR IV REASON: Acute abdominal pain ORDER NUMBER(s): [id number], ACCESSION NUMBER(s): [id number] Exam: CT CT AB PEL WO CON-NO ORAL OR IV History: Acute abdominal pain Comparison Study: None available at time of dictation. TECHNIQUE: Noncontrast CT imaging of the abdomen and pelvis was obtained. The data set was subsequently reconstructed into axial images. Images were reviewed on a work station using a combination of axial and multiplanar using a variety of window levels and settings. All CT scans at this medical facility are performed using dose modulation techniques as appropriate to a performed exam including the following: Automated exposure control was utilized; adjustment of the MA and/or KV according to patient size; and use of iterative reconstruction technique. Radiation Dose Information: CT Dose: Dose-length product is 718.8 mGy*cm FINDINGS: There are severe coronary artery calcifications. No Limited noncontrast evaluation of the liver, gallbladder, spleen, pancreas and adrenal glands appear unremarkable. There is a 3.4 cm iso to hyperdense mass of the right lower pole. Additional 2.5 cm right renal cysts. Multiple bilateral 1-2 mm nonobstructing renal calculi. No hydronephrosis. There is no evidence of bowel obstruction or focal bowel wall thickening. The appendix appears normal. The prostate gland is enlarged estimated 6.9 x 6.3 x 6.1 cm. Pinon catheter is present within the urinary bladder with hyperdense fluid within the bladder. No free pelvic fluid. No suspicious osseous lesion with severe degenerative changes of the lumbar spine. IMPRESSION: 1. 3.4 cm mass of the right kidney concerning for neoplastic process. CT or MRI with contrast is recommended for further characterization. 2. Hyperdense fluid within the urinary bladder in presence of the Pinon catheter likely represents blood products. Correlation with urinalysis is recommended. 3. Enlarged prostate gland. 4. Bilateral nonobstructing renal calculi. ATED BY: OLEG DALE MD DICTATED DATE/TIME: 02/12/24537 SIGNED BY: OLEG DALE MD SIGNED DATE/TIME: 02/12/24537 CC: [place] [address] Ph: [phone] DIAGNOSTIC IMAGING Diagnostic Imaging Report : [id number] Signed PATIENT: MIREYA DUBOSE ACCT: [id number] UNIT: [id number] : 1950 LOC: CENTRAL ROOM / BED: [facility] / A AGE / SEX: 73 / M ADM STATUS: ADM IN SERVICE 1022 ORDERING PHYSICIAN: RADHA SAEZ RESIDENT PROCEDURE(s): KIDUS - KIDNEY REASON: gross hematuria ORDER NUMBER(s): [id number], ACCESSION NUMBER(s): [id number] INDICATION: gross hematuria TECHNIQUE: Multiple real-time sonographic images of the kidneys and bladder were obtained. COMPARISON: None FINDINGS: The right kidney measures 10.2 cm in length. The right renal echogenicity, contour and cortical thickness are within normal limits. No hydronephrosis or large masses/calculi are seen. Multiple simple cysts are seen, the largest measuring up to 2.7 cm. The left kidney measures 11.2 cm in length. The left renal echogenicity, contour, and cortical thickness are within normal limits. No hydronephrosis or large masses/calculi are seen. No large intraluminal masses are seen in the bladder. Urinary bladder is collapsed around a Pinon catheter. Echogenic debris in the urinary bladder may reflect blood products. IMPRESSION: 1. No evidence of hydronephrosis. 2. Echogenic debris in the urinary bladder may reflect blood products. ATED BY: EDMUND PAIGE MD DICTATED DATE/TIME: 02/12/24 120 SIGNED BY: EDMUND PAIGE MD SIGNED DATE/TIME: 02/12/24 1204 CC: [place] [address] Ph: [phone] DIAGNOSTIC IMAGING Diagnostic Imaging Report : [id number] Signed PATIENT: MIREYA DUBOSE ACCT: [id number] UNIT: [id number] : 1950 LOC: CENTRAL ROOM / BED: [facility] / A AGE / SEX: 73 / M ADM STATUS: ADM IN SERVICE 1636 ORDERING PHYSICIAN: RADHA SAEZ RESIDENT PROCEDURE(s): ABPLIV - CT AB PEL WITH IV CON ONLY REASON: renal mass ?neoplastic, ?emphysematous cystitis ORDER NUMBER(s): [id number], ACCESSION NUMBER(s): [id number] Exam: CT CT AB PEL WITH IV CON ONLY History: renal mass neoplastic, emphysematous cystitis COMPARISON: CT CT AB PEL WO CON-NO ORAL OR IV on DOS: 02/12/24 ; renal ultrasound 02/12/2024 Technique: Multidetector spiral CT of the abdomen and pelvis was performed from lung bases to pubic symphysis. Intravenous contrast was administered during this examination. Portal venous imaging was obtained. Axial, coronal and sagittal multiplanar reformats were performed by the technologist on a separate workstation. Radiation Dose : 1. Abdomen/Pelvis: CTDIvol 10.3 mGy, DLP 601.28 mGy*cm. CONTRAST: 100 mL omni 300 Findings: Lung Bases: Minimal bibasilar atelectasis. Liver: The liver is normal in size. No focal lesions. Normal hepatic vascular enhancement. Gallbladder and Biliary Tree: Unremarkable Spleen: Unremarkable Pancreas: The pancreas is normal in appearance without focal lesions or abnormal enhancement. Adrenal Glands: Unremarkable Kidneys: Right renal scarring. There is a 2.5 cm fluid attenuating right renal cyst. There is a 3.4 x 2.8 x 3.0 cm homogeneous and circumscribed lesion in the right inferior renal pole that attenuates at 45 Hounsfield units. Of note, on noncontrast CT from 02/12/2024 this also attenuated at 45 Hounsfield units. Several punctate nonobstructing renal calculi are seen, better seen on comparison noncontrast CT. No hydronephrosis. Bladder: A Pinon catheter is in place within the urinary bladder. There is a small amount of intravesicular air. There is urinary bladder wall thickening and perivesicular fat stranding. Bowel: The stomach is grossly normal in appearance. Small bowel and colon are normal in caliber and distribution. Normal appendix is visualized in the right lower quadrant without findings of appendicitis. Ascites: Absent Lymphadenopathy: No mesenteric, retroperitoneal or periportal lymphadenopathy. Abdominal Wall and Mesentery: Unremarkable. Vasculature: The visualized abdominal aorta is normal in size and caliber. Abdominal and pelvic vessels demonstrate normal enhancement. Pelvic Organs: Prostate is enlarged. Musculoskeletal: No aggressive focal bony lesions, acute fractures or dislocation. Moderate to advanced degenerative disc changes from L3-S1. IMPRESSION: 1. Urinary bladder wall thickening and adjacent fat stranding. Correlate for cystitis. A Pinon catheter is in place and there is minimal intraluminal air. This is nonspecific but commonly secondary to instrumentation rather than emphysematous cystitis. 2. Moderate prostatomegaly. 3. Right renal lesion measuring up to 3.4 cm. This does not demonstrate any enhancement when compared with noncontrast CT from 02/12/2024, and most likely r epresents a complicated cyst. Recommend follow-up imaging in 6 months. Radiation optimization: All CT scans at this facility use at least one of these dose optimization techniques: automated exposure control mA and/or kV adjustment per patient size (includes targeted exams where dose is matched to clinical indication) or iterative reconstruction. ATED BY: WENDY PATEL DO DICTATED DATE/TIME: 02/13/24 1111 SIGNED BY: WENDY PATEL DO SIGNED DATE/TIME: 02/13/24 1111 CC: Labs Test 02/14/24 04:43 02/13/24 04:34 02/13/24 03:50 02/12/24 20:06 Range/Units Hemoglobin 12.7 L 13.5-17.5 g/dL Hematocrit 36.5 L 41.0-53.0 % Sodium Level 143 136-145 mmol/L Potassium Level 3.2 L 3.5-5.1 mmol/L Chloride Level 108 H 98-107 mmol/L Carbon Dioxide Level 27 20-31 mmol/L Anion Gap 8 5-15 Blood Urea Nitrogen 7 L 9-23 mg/dL Creatinine 0.80 0.700-1.30 mg/dL Glomerular Filtration Rate Calc 95 >90 mL/min BUN/Creatinine Ratio 8.8 L 10.0-20.0 Serum Glucose 97 74-106 mg/dL Calcium Level 9.1 8.7-10.4 mg/dL White Blood Count 7.9 4.4-10.8 10^3/uL Red Blood Count 4.14 L 4.5-5.90 10^6/uL Mean Corpuscular Volume 89.8 80.0-100.0 fL Mean Corpuscular Hemoglobin 31.4 28.0-32.0 pg Mean Corpuscular Hemoglobin Concent 35.0 32.0-36.0 g/dL Red Cell Distribution Width 13.8 11.8-14.3 % Platelet Count 182 140-450 10^3/uL Mean Platelet Volume 10.0 6.9-10.8 fL Neutrophils (%) (Auto) 74.8 37.0-80.0 % Lymphocytes (%) (Auto) 17.4 10.0-50.0 % Monocytes (%) (Auto) 6.2 0.0-12.0 % Eosinophils (%) (Auto) 1.3 0.0-7.0 % Basophils (%) (Auto) 0.3 0.0-2.0 % Neutrophils # (Auto) 5.9 1.6-8.6 10 ^3/uL Lymphocytes # (Auto) 1.4 0.4-5.4 10 ^3/uL Monocytes # (Auto) 0.5 0-1.3 10 ^3/uL Eosinophils # (Auto) 0.1 0-0.8 10 ^3/uL Basophils # (Auto) 0 0-0.2 10 ^3/uL Nucleated Red Blood Cells 0.0 % Total Bilirubin 1.0 0.2-1.0 mg/dL Aspartate Amino Transferase (AST) 8 L 13-40 U/L Alanine Aminotransferase (ALT) 19 7-40 U/L Alkaline Phosphatase 76 46-116 U/L Total Protein 6.2 5.7-8.2 g/dL Albumin 3.8 3.2-4.8 g/dL Urine Opiates Screen Neg NEGATIVE Urine Fentanyl Screen Neg NEGATIVE Urine Barbiturates Screen Neg NEGATIVE Urine Phencyclidine Screen Neg NEGATIVE Urine Amphetamines Screen Neg NEGATIVE Urine Benzodiazepines Screen Neg NEGATIVE Urine Cocaine Screen Neg NEGATIVE Urine Cannabinoids Screen Neg NEGATIVE Urine Color Colorless Yellow Urine Clarity Clear Clear Urine pH 7.0 5.0-9.0 Urine Specific [place] 1.005 1.001-1.035 Urine Protein Negative Negative Urine Ketones Negative Negative Urine Blood 3+ H Negative /uL Urine Nitrite Negative Negative Urine Bilirubin Negative Negative Urine Urobilinogen Normal Negative mg/dL Urine Leukocyte Esterase 1+ Negative /uL Urine RBC 256 0 - 3 /hpf Urine WBC 19 0 - 3 /hpf Urine Squamous Epithelial Cells None seen <5 /hpf Urine Bacteria Few H None Seen /hpf Urine Glucose Normal Normal mg/dL Test 02/12/24 14:39 02/12/24 08:14 02/12/24 01:18 Range/Units Activated Partial Thromboplast Time 28.1 24.5-34.5 SEC Magnesium Level 2.3 1.6-2.6 mg/dL Free Thyroxine (T4) Calculated 1.26 0.89-1.76 ng/dL Free Triiodothyronine (T3) pg/mL 3.87 2.3-4.2 pg/mL Prothrombin Time 10.9 9.3-11.8 sec Prothrombin Time INR 1.03 0.9-1.15 Thyroid Stimulating Hormone (TSH) 5.46 H 0.55-4.78 uIU/mL Microbiology Date/Time Source Procedure Growth Status 02/12/24 23:20 Nose MRSA Screen - Final Complete 02/12/24 20:06 Urine - Pinon Port Urine Culture - Preliminary Resulted 12/7/24 08:14 Blood Blood Culture - Preliminary NO GROWTH AFTER 48 HOURS OF INCUBATION. Resulted Assessment/Plan Problem List: (1) BPH loc w urin obs/LUTS (2) Gross hematuria Plan PSA is pending d/c pinon Outpt urology follow up in 2 weeks. needs cystoscopy and TURP or similar. 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
[2024-02-14 09:45] LABS: Hepatitis C Antibody Negative (Negative)
[2024-02-14 13:00] VITALS: BP 144/91; PULSE 101; RESP 17; TEMP 97.9; O2SAT 98
[2024-02-14 16:26] VITALS: BP 127/78; PULSE 79; RESP 17; TEMP 36.6; O2SAT 97
[2024-02-14] MEDS ORDERED: FIN5T PO (16:50)
[2024-02-14] MEDS ORDERED: TAMS-35 PO (16:50)
[2024-02-14 17:02] VITALS: BP 127/78; PULSE 79; RESP 17; TEMP 98.1; O2SAT 97
--- NOTE | 2024-02-14 19:11 | DVHDSRES ---
Discharge Summary Date of Admission Resident Creating Document: RADHA SAEZ RESIDENT Feb 12, 2024 at 02:31 Date of Discharge: Feb 14, 2024 Admitting Diagnosis # Recurrent gross hematuria acute urinary retention likely due to clot formation ? Rule out benign prostatic hyperplasia ? Bladder pathology ? Urolithiasis ? 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 # Uncontrolled hypertension # Hyperlipidemia # Hepatic steatosis Wounds: no wounds Labs/Diagnostic Data: Laboratory Results Test 02/14/24 04:43 02/13/24 04:34 02/13/24 03:50 02/12/24 20:06 Hemoglobin 12.7 g/dL (13.5-17.5) Hematocrit 36.5 % (41.0-53.0) Sodium Level 143 mmol/L (136-145) Potassium Level 3.2 mmol/L (3.5-5.1) Chloride Level 108 mmol/L (98-107) Carbon Dioxide Level 27 mmol/L (20-31) Anion Gap 8 (5-15) Blood Urea Nitrogen 7 mg/dL (9-23) Creatinine 0.80 mg/dL (0.700-1.30) Glomerular Filtration Rate Calc 95 mL/min (>90) BUN/Creatinine Ratio 8.8 (10.0-20.0) Serum Glucose 97 mg/dL (74-106) Calcium Level 9.1 mg/dL (8.7-10.4) White Blood Count 7.9 10^3/uL (4.4-10.8) Red Blood Count 4.14 10^6/uL (4.5-5.90) Mean Corpuscular Volume 89.8 fL (80.0-100.0) Mean Corpuscular Hemoglobin 31.4 pg (28.0-32.0) Mean Corpuscular Hemoglobin Concent 35.0 g/dL (32.0-36.0) Red Cell Distribution Width 13.8 % (11.8-14.3) Platelet Count 182 10^3/uL (140-450) Mean Platelet Volume 10.0 fL (6.9-10.8) Neutrophils (%) (Auto) 74.8 % (37.0-80.0) Lymphocytes (%) (Auto) 17.4 % (10.0-50.0) Monocytes (%) (Auto) 6.2 % (0.0-12.0) Eosinophils (%) (Auto) 1.3 % (0.0-7.0) Basophils (%) (Auto) 0.3 % (0.0-2.0) Neutrophils # (Auto) 5.9 10 ^3/uL (1.6-8.6) Lymphocytes # (Auto) 1.4 10 ^3/uL (0.4-5.4) Monocytes # (Auto) 0.5 10 ^3/uL (0-1.3) Eosinophils # (Auto) 0.1 10 ^3/uL (0-0.8) Basophils # (Auto) 0 10 ^3/uL (0-0.2) Nucleated Red Blood Cells 0.0 % Total Bilirubin 1.0 mg/dL (0.2-1.0) Aspartate Amino Transferase (AST) 8 U/L (13-40) Alanine Aminotransferase (ALT) 19 U/L (7-40) Alkaline Phosphatase 76 U/L (46-116) Total Protein 6.2 g/dL (5.7-8.2) Albumin 3.8 g/dL (3.2-4.8) Urine Opiates Screen Neg (NEGATIVE) Urine Fentanyl Screen Neg (NEGATIVE) Urine Barbiturates Screen Neg (NEGATIVE) Urine Phencyclidine Screen Neg (NEGATIVE) Urine Amphetamines Screen Neg (NEGATIVE) Urine Benzodiazepines Screen Neg (NEGATIVE) Urine Cocaine Screen Neg (NEGATIVE) Urine Cannabinoids Screen Neg (NEGATIVE) Urine Color Colorless (Yellow) Urine Clarity Clear (Clear) Urine pH 7.0 (5.0-9.0) Urine Specific [place] 1.005 (1.001-1.035) Urine Protein Negative (Negative) Urine Ketones Negative (Negative) Urine Blood 3+ /uL (Negative) Urine Nitrite Negative (Negative) Urine Bilirubin Negative (Negative) Urine Urobilinogen Normal mg/dL (Negative) Urine Leukocyte Esterase 1+ /uL (Negative) Urine RBC 256 /hpf (0 - 3) Urine WBC 19 /hpf (0 - 3) Urine Squamous Epithelial Cells None seen /hpf (<5) Urine Bacteria Few /hpf (None Seen) Urine Glucose Normal mg/dL (Normal) Test 02/12/24 14:39 02/12/24 08:14 02/12/24 01:18 Hepatitis B Surface Antigen Negative (Negative) Hepatitis C Antibody Negative (Negative) Activated Partial Thromboplast Time 28.1 SEC (24.5-34.5) Magnesium Level 2.3 mg/dL (1.6-2.6) Free Thyroxine (T4) Calculated 1.26 ng/dL (0.89-1.76) Free Triiodothyronine (T3) pg/mL 3.87 pg/mL (2.3-4.2) Prothrombin Time 10.9 sec (9.3-11.8) Prothrombin Time INR 1.03 (0.9-1.15) Thyroid Stimulating Hormone (TSH) 5.46 uIU/mL (0.55-4.78) Other Laboratory Tests 02/14/24 04:43 02/13/24 04:34 Brief Hx & Hospital Course: HPI 73-year-old male with a past medical history as described below presented to the ED with a chief complaint of urinary retention and suprapubic pain. Patient reported that 4 days prior to admission he had hematuria for about 2 hours but it was cleared afterwards and 1 day prior to admission he was having hematuria again with passage of clots followed by not able to pass urine and that "the clots got stuck in urethra" as reported by the patient, he had associated suprapubic pain when he was not able to pass the urine. Patient denied fever, chills, flank pain, back pain, nausea, vomiting. Patient reports that he has had multiple episodes of hematuria since the last 10 years. He says that hematuria usually occurs every 2-3 months clears up in a few days. Usually he says that he drinks large amount of water to help flush the clots and restart the urine he sometimes he has to go to the hospital. Patient denied recent weight loss, malaise. Patient reports occasional constipation.The patient has a history of taking aspirin intermittently over the past decade for perceived benefit in reducing colon cancer and cardiovascular risk initially 325 mg, then reduced to 100 mg. Past medical history: Hypertension, hyperlipidemia, fatty liver, BPH Past surgical history: TURP Social history: Patient denies smoking, alcohol, drug use Home medications: Atorvastatin 40 mg, losartan 50 mg, nifedipine 90 mg, pancrelipase 76550 units p.o. Hospital course Patient had acute urinary obstruction and a Pinon's catheter was inserted which showed gross hematuria with blood clots. Patient was started on continuous bladder irrigation and the urine sample was sent for urinalysis and urine bacteria culture. Patient's hemoglobin and hematocrit were stable. Coagulation profile with a PT, INR, APTT was within normal limits. Initial CT abdomen pelvis without contrast showed 3.4 cm mass of the right kidney, hyperdense fluid within the urinary better, enlarged prostate, bilateral nonobstructive renal calculi. Bladder was continuously irrigated with normal saline. Renal ultrasound showed no evidence of hydronephrosis, echogenic debris in the urinary bladder which may reflect blood products. CT abdomen pelvis with IV contrast showed urinary bladder wall thickening and adjacent fat stranding, moderate prostatomegaly, right renal lesion measuring 3.4 cm that does not demonstrate any enhancement when compared to noncontrast CT and most likely represents a complicated cyst. With continuous irrigation for more than 2 days patient has urine cleared up and he does not have gross hematuria anymore. Urology were consulted who recommended discontinuing Pinon and outpatient urology follow up in 2 weeks. Patient was given IV ceftriaxone in the hospital. Preliminary urine culture at 36 over showed no growth. Patient was discharged in stable condition to home advised to follow up in the discharge clinic in 1 week and follow up with the Urology. Review of systems Patient is seen and examined at bedside. Alert and oriented x4. Denies any abdominal pain, nausea, vomiting, he is ambulatory, tolerating diet. No hematuria. At the time of examination patient denies suprapubic pain and is sitting comfortably in bed. Physical Examination Gen - no pallor, no icterus, no cyanosis, no clubbing, no LAD, no edema . Skin - Patients skin is warm and dry. HEENT - normocephalic, atraumatic, moist mucous membranes. Neck - full ROM, no LAD, no JVD Pulmonary - B/L vesicular breath sounds. no crackles , no wheezing, no stridor. cardiovascular - normal S1,S2 heard. no murmurs heard. peripheral pulses normal radial 2+, pedal 2+. capillary refill normal <2 secs. GI - soft abdomen without tenderness to palpation . no hepatosplenomegaly. Bowel sounds normoactive Neurological - Patient is A/O X 3. Bilateral upper extremity strength 5/5, bilateral lower extremity strength 5/5, no facial droop, normal speech, no tremor, no sensory deficiets. Discharge plan Patient was discharged to home and advised to follow up with the discharge clinic in 1 week and in the urology outpatient clinic in 2 weeks for further workup. Prescribed tamsulosin 0.4 mg once daily and finasteride 5 mg once daily Continued on home medications Consults/Reason for consult Urology consultation due to gross hematuria Operations or Procedures # Bladder irrigation with a 3 way pinon catheter # CT abdominal pelvis without IV or oral contrast FINDINGS: There are severe coronary artery calcifications. Limited noncontrast evaluation of the liver, gallbladder, spleen, pancreas and adrenal glands appear unremarkable. There is a 3.4 cm iso to hyperdense mass of the right lower pole. Additional 2.5 cm right renal cysts. Multiple bilateral 1-2 mm nonobstructing renal calculi. No hydronephrosis. There is no evidence of bowel obstruction or focal bowel wall thickening. The appendix appears normal. The prostate gland is enlarged estimated 6.9 x 6.3 x 6.1 cm. Pinon catheter is present within the urinary bladder with hyperdense fluid within the bladder. No free pelvic fluid. No suspicious osseous lesion with severe degenerative changes of the lumbar spine. IMPRESSION: 1. 3.4 cm mass of the right kidney concerning for neoplastic process. CT or MRI with contrast is recommended for further characterization. 2. Hyperdense fluid within the urinary bladder in presence of the Pinon catheter likely represents blood products. Correlation with urinalysis is recommended. 3. Enlarged prostate gland. 4. Bilateral nonobstructing renal calculi. # Kidney ultrasound FINDINGS: The right kidney measures 10.2 cm in length. The right renal echogenicity, contour and cortical thickness are within normal limits. No hydronephrosis or large masses/calculi are seen. Multiple simple cysts are seen, the largest measuring up to 2.7 cm. The left kidney measures 11.2 cm in length. The left renal echogenicity, contour, and cortical thickness are within normal limits. No hydronephrosis or large masses/calculi are seen. No large intraluminal masses are seen in the bladder. Urinary bladder is collapsed around a Pinon catheter. Echogenic debris in the urinary bladder may reflect blood products. IMPRESSION: 1. No evidence of hydronephrosis. 2. Echogenic debris in the urinary bladder may reflect blood products. # CT abdomen pelvis with IV contrast Findings: Lung Bases: Minimal bibasilar atelectasis. Liver: The liver is normal in size. No focal lesions. Normal hepatic vascular enhancement. Gallbladder and Biliary Tree: Unremarkable Spleen: Unremarkable Pancreas: The pancreas is normal in appearance without focal lesions or abnormal enhancement. Adrenal Glands: Unremarkable Kidneys: Right renal scarring. There is a 2.5 cm fluid attenuating right renal cyst. There is a 3.4 x 2.8 x 3.0 cm homogeneous and circumscribed lesion in the right inferior renal pole that attenuates at 45 Hounsfield units. Of note,on noncontrast CT from 02/12/2024 this also attenuated at 45 Hounsfield units. Several punctate nonobstructing renal calculi are seen, better seen on comparison noncontrast CT. No hydronephrosis. Bladder: A Pinon catheter is in place within the urinary bladder. There is a small amount of intravesicular air. There is urinary bladder wall thickening and perivesicular fat stranding. Bowel: The stomach is grossly normal in appearance. Small bowel and colon are normal in caliber and distribution. Normal appendix is visualized in the right lower quadrant without findings of appendicitis. Ascites: Absent Lymphadenopathy: No mesenteric, retroperitoneal or periportal lymphadenopathy. Abdominal Wall and Mesentery: Unremarkable. Vasculature: The visualized abdominal aorta is normal in size and caliber. Abdominal and pelvic vessels demonstrate normal enhancement. Pelvic Organs: Prostate is enlarged. Musculoskeletal: No aggressive focal bony lesions, acute fractures or dislocation. Moderate to advanced degenerative disc changes from L3-S1. IMPRESSION: 1. Urinary bladder wall thickening and adjacent fat stranding. Correlate for cystitis. A Pinon catheter is in place and there is minimal intraluminal air. This is nonspecific but commonly secondary to instrumentation rather than emphysematous cystitis. 2. Moderate prostatomegaly. 3. Right renal lesion measuring up to 3.4 cm. This does not demonstrate any enhancement when compared with noncontrast CT from 02/12/2024, and most likely represents a complicated cyst. Recommend follow-up imaging in 6 months. Condition at Discharge: Good Final Diagnosis/Problems List # Acute urinary obstruction likely due to blood clots # Gross hematuria # Enlarged prostate likely BPH # Right renal mass # ?neoplastic renal mass #Complicated renal cyst # Uncontrolled Hypertension # h/o hyperlipidemia # hypokalemia Discharge Disposition: Home Discharge Instruct/Medications Diet: Regular Activity: No Restrictions, As Tolerated Follow Up/Referral: Follow up with urology in the outpatient clinic in 2 weeks Follow up with the PCP in 1-2 weeks Medications: as per EMR Discharge Statement: "Patient was advised to return to the ER or call 911 if any headaches, dizziness, shortness of breath, chest pain, abdominal pain, bleeding, fevers, or worsening of medical condition. Patient was counseled about treatment plan, medications, possible side effects, patientverbalized understanding. All questions were answered to the best of my ability. This discharge took greater then 30 minutes in planning, reviewing documentation, counseling the patient, and discussing with other team members." ASSESSMENT ASSESSMENT Assessment # Acute urinary obstruction likely due to blood clots # Gross hematuria # Enlarged prostate likely BPH # Right renal mass # ?neoplastic renal mass #Complicated renal cyst # Uncontrolled Hypertension # h/o hyperlipidemia # hypokalemia RADHA SAEZ RESIDENT Feb 14, 2024 19:11
[2024-02-15 01:06] LABS: Prostate Specific Antigen 53.5 ng/mL (0.0-4.0)
== END 2024-02-14 17:12 | disposition home or self-care (01) | DRG 726 ==
LOC: EDBD 22:55 → ER 22:55 → OVERFLOW 02-12 02:31 → CENTRAL 02-12 11:40
PROVIDERS: ADMIT Student in an Organized Health Care Education/Training Program; ATTEND Student in an Organized Health Care Education/Training Program
DX: N40.1 Benign prostatic hyperplasia with lower urinary tract symptoms (principal); N13.8 Other obstructive and reflux uropathy; I16.0 Hypertensive urgency; R33.8 Other retention of urine; K76.0 Fatty (change of) liver, not elsewhere classified; I10 Essential (primary) hypertension; N20.9 Urinary calculus, unspecified; N28.1 Cyst of kidney, acquired; E78.5 Hyperlipidemia, unspecified; N28.89 Other specified disorders of kidney and ureter; E87.6 Hypokalemia; Z86.73 Personal history of transient ischemic attack (TIA), and cerebral infarction without residual deficits; Z79.899 Other long term (current) drug therapy
CPT/HCPCS: 36415; 71045; 74176; 74177; 76775; 80048; 80053; 80307; 81001; 83735; 84154; 84439; 84443; 84481; 85014; 85018; 85025; 85610; 85730; 86803; 87040; 87081; 87086; 87340; G0378; J2185